=== PATIENT | male | born 1965 | race Hispanic/Latino ===

== ENCOUNTER 2016-10-16 17:41 | Emergency (ER) | payer MEDICARE ==
[2016-10-16 17:41] VITALS: BMI 25.8
[2016-10-16 17:49] VITALS: BP 135/81; RESP 20; TEMP 97.7; O2SAT 98
--- NOTE | 2016-10-16 17:55 | ED PDOC ---
Lower Extremity Pain/Injury Time Seen by Provider: 10/16/16 17:54 Chief Complaint (Nursing): Lower Extremity Problem/Injury Chief Complaint (Provider): leg pain History Per: Patient Additional Complaint(s): 50-year-old male with history of diabetes presents to emergency Department with pain to both feet for several weeks. He denies trauma or injury. Patient has been noncompliant with oral diabetes medications for the past 6 months. He was taking metformin but state it was causing too much stomach upset so he stopped taking the medication. Patient currently doesn't have a primary doctor and he is currently living in motels and he is "in between homes." Past Medical History Reviewed: Historical Data, Nursing Documentation, Vital Signs Vital Signs: Last Vital Signs Temp 97.7 F 10/16/16 17:48 Pulse 105 H 10/16/16 17:48 Resp 20 10/16/16 17:48 BP 135/81 10/16/16 17:48 Pulse Ox 98 10/16/16 17:48 - Medical History PMH: Depression, Diabetes, Schizophrenia - Surgical History Surgical History: No Surg Hx - Family History Family History: States: No Known Family Hx - Living Arrangements Living Arrangements: Other (living in motel currently, "in between homes") - Social History Current smoker - smoking cessation education provided: Yes Alcohol: None Drugs: Denies - Home Medications Home Medications: Ambulatory Orders Medication Instructions Recorded PARoxetine [Paxil] 30 mg PO DAILY 06/15/12 risperiDONE [RisperDAL Tab] 3 mg PO DAILY 06/15/12 - Allergies Allergies/Adverse Reactions: Allergies Allergy/AdvReac Type Severity Reaction Status Date / Time Penicillins Allergy RASH Verified 10/16/16 17:48 Wells Criteria for PE - Wells Criteria for Pulmonary Embolism Clinical Signs and Symptoms of DVT: No P.E is #1 Diagnosis, or Equally Likely: No Heart Rate >100: No Immobilization at least 3 days;Surgery previous 4 weeks: No Previous, objectively diagnosed PE or DVT: No Hemoptysis: No Malignancy w/treatment within 6 months, or palliative: No Total Score: 0 Review of Systems ROS Statement: Except As Marked, All Systems Reviewed And Found Negative Constitutional: Negative for: Fever Respiratory: Negative for: Shortness of Breath Musculoskeletal: Positive for: Foot Pain (bilateral) Physical Exam - Reviewed Nursing Documentation Reviewed: Yes Vital Signs Reviewed: Yes - Physical Exam Appears: Positive for: Well (appears unkempt), Non-toxic Skin: Negative for: Rash Cardiovascular/Chest: Positive for: Regular Rate, Rhythm Respiratory: Positive for: Normal Breath Sounds Extremity: Positive for: Other (Erythematous discoloration noted to plantar aspect of bilateral feet at base of toes, no acute infection noted, no active drainage, over grown toenails noted on both feet with debris under nails) Neurologic/Psych: Positive for: Alert, Oriented - Laboratory Results Result Diagrams: 10/16/16 19:05 10/16/16 19:05 - ECG O2 Sat by Pulse Oximetry: 98 Pulse Ox Interpretation: Normal Medical Decision Making Medical Decision Makin50 year old diabetic with foot pain Plan: Fingerstick CBC CMP Fingerstick 239 CMP glucose is 215 Patient seen by podiatry resident, no acute intervention indicated. Patient was referred to family practice clinic in podiatry clinic for follow-up. He was offered prescription for metformin for diabetes but he refused stating this medication causes GI side effects. He was advised to follow up as soon as possible clinic for further evaluation. Disposition - Clinical Impression Clinical Impression: Diabetes mellitus, Foot pain - Patient ED Disposition Is Patient to be Admitted: No Counseled Patient/Family Regarding: Studies Performed, Diagnosis, Need For Followup - Disposition Referrals: Podiatry Clinic [Outside] [facility] [Outside] Disposition: Routine/Home Disposition Time: 19:53 Condition: STABLE Additional Instructions: Follow-up with clinic as soon as possible. Instructions: Foot Sprain (ED), Diabetes Mellitus Type 2 in Adults (ED) Results - Lab Results Lab Results: 10/16/16 19:05 WBC 10.6 RBC 4.94 Hgb 14.5 Hct 43.8 MCV 88.7 MCH 29.4 MCHC 33.2 RDW 13.7 Plt Count 209 MPV 8.0 Neut % (Auto) 67.4 Lymph % (Auto) 22.9 Orange % (Auto) 7.2 Eos % (Auto) 1.3 Baso % (Auto) 1.2 Neut # 7.1 H Lymph # 2.4 Orange # 0.8 Eos # 0.1 Baso # 0.1 Sodium 140 Potassium 3.6 Chloride 102 Carbon Dioxide 25 Anion Gap 16 BUN 16 Creatinine 0.4 L Est GFR ( Amer) > 60 Est GFR (Non-Af Amer) > 60 Random Glucose 215 H Calcium 9.2 Total Bilirubin 0.7 AST 26 ALT 26 Alkaline Phosphatase 94 Total Protein 6.9 Albumin 4.0 Globulin 3.0 Albumin/Globulin Ratio 1.3
[2016-10-16 19:17] LABS: BASO # 0.1 K/uL (0.0-0.2); BASO % 1.2 % (0.0-2.0); EOS # 0.1 K/uL (0.0-0.7); EOS % 1.3 % (0.0-4.0); HEMATOCRIT 43.8 % (35.0-51.0); LYMPH # 2.4 K/uL (1.0-4.3); LYMPH % 22.9 % (20.0-40.0); MEAN CELL VOLUME 88.7 fl (80.0-94.0); MEAN CORPUSCULAR HEMOGLOBIN 29.4 pg (27.0-31.0); MEAN CORPUSCULAR HGB CONC 33.2 g/dL (33.0-37.0); MONO # 0.8 K/uL (0.0-0.8); MONO % 7.2 % (0.0-10.0); NEUT # 7.1 K/uL (1.8-7.0); NEUT % 67.4 % (50.0-75.0); NRBC % 0.1 % (0.0-0.0); RED CELL DISTRIBUTION WIDTH 13.7 % (11.5-14.5); WHITE BLOOD COUNT 10.6 K/uL (4.8-10.8)
--- NOTE | 2016-10-16 19:18 | CP.PCM.CON ---
History of Present Illness - History of Present Illness History of Present Illness: 50 year old male with PMHx of DM presents to the ED for complaint of pain in his feet. He states that the pain started 48 hours ago on the bottom of his feet. He admits to more pain when he is weight bearing. He denies any trauma to his feet. Patient states that he is "inbetween homes" and does not have a linoleum floor installer. He denies any n/v/f/c/sob/cp. Past Patient History - Infectious Disease Hx of Infectious Diseases: None - Tetanus Immunizations Tetanus Immunization: Unknown - Past Social History Alcohol: None Drugs: Denies - CARDIAC Hx Cardia Arrhythmia: No Hx Congestive Heart Failure: No Hx Hypercholesterolemia: No Hx Hypertension: No Hx Mitral Valve Prolapse: No Hx Pacemaker: No Hx Peripheral Edema: No - PULMONARY Hx Asthma: No Hx Bronchitis: No Hx Chronic Obstructive Pulmonary Disease (COPD): No Hx Emphysema: No Hx Pneumonia: No Hx Sleep Apnea: No - NEUROLOGICAL Hx Alzheimer's Disease: No Hx Dementia: No Hx Migraine: No Hx Parkinson's Disease: No Hx Seizures: No Hx Transient Ischemic Attacks (TIA): No - HEENT Hx HEENT Problems: No Hx Blind: No Hx Cataracts: No Hx Deafness: No Hx Difficulty Chewing: No Hx Epistaxis: No Hx Glaucoma: No Hx Macular Degeneration: No - RENAL Hx Chronic Kidney Disease: No Hx Kidney Stones: No - ENDOCRINE/METABOLIC Hx Hyperthyroidism: No Hx Hypothyroidism: No - HEMATOLOGICAL/ONCOLOGICAL Hx Anemia: No Hx Human Immunodeficiency Virus (HIV): No Hx Sickle Cell Disease: No - INTEGUMENTARY Hx Dermatological Problems: No Hx Basil Cell: No Hx Eczema: No Hx Melanoma: No Hx Psoriasis: No Hx Squamous Cell: No - MUSCULOSKELETAL/RHEUMATOLOGICAL Hx Arthritis: No Hx Fractures: No Hx Osteoporosis: No - GASTROINTESTINAL Hx Crohn's Disease: No Hx Diverticulitis: No Hx Gall Bladder Disease: No Hx Pancreatitis: No - GENITOURINARY/GYNECOLOGICAL Hx Sexually Transmitted Disorders: No - PSYCHIATRIC Hx Depression: Yes Hx Schizophrenia: Yes - SURGICAL HISTORY Hx Appendectomy: No Hx Cholecystectomy: No Hx Coronary Stent: No - ANESTHESIA Hx Anesthesia: No Meds Allergies/Adverse Reactions: Allergies Allergy/AdvReac Type Severity Reaction Status Date / Time Penicillins Allergy RASH Verified 10/16/16 17:48 Physical Exam - Constitutional Appears: Well, Non-toxic, No Acute Distress - Extremities Exam Additional comments: Vasc: DP and PT pulses palpable b/l. CFT < 3 seconds to all digits b/l. Skin temperature warm to cool from proximal to distal b/l. Neuro: Gross sensation intact b/l. Ortho: Pain on palpation to plantar aspect of forefoot. Derm: Erythematous areas noted to the plantar aspect of digits 1-5,bases of digits, lateral aspect of 5th metatarsal shaft and heels b/l. No drainage noted. No acute signs of infection noted. Nails 1-5 b/l are discolored, thickened, and elongated. Webspace are intact, with debris noted to skin. - Neurological Exam Neurological exam: Alert, Oriented x3 - Psychiatric Exam Psychiatric exam: Normal Affect, Normal Mood Results - Vital Signs Recent Vital Signs: Last Vital Signs Temp 97.7 F 10/16/16 17:48 Pulse 105 H 10/16/16 17:48 Resp 20 10/16/16 17:48 BP 135/81 10/16/16 17:48 Pulse Ox 98 10/16/16 19:02 - Labs Result Diagrams: 10/16/16 19:05 10/16/16 19:05 Assessment & Plan - Assessment and Plan (Free Text) Assessment: 50 year old male with foot pain due to wet footgear Plan: Patient examined and evaluated Chart, labs, vitals reviewed Discussed in detail with attending, Dr. Castellon Patient instructed to wear dry foot gear Patient to keep his legs elevated prn Patient to follow up in Podiatry clinic next week
[2016-10-16 19:24] LABS: ALB/GLOB RATIO 1.3 (1.0-2.1); ALKALINE PHOSPHATASE 94 U/L (38-126); ALT/SGPT 26 U/L (21-72); AST/SGOT 26 U/L (17-59); BILIRUBIN,TOTAL 0.7 mg/dl (0.2-1.3); BLOOD UREA NITROGEN 16 mg/dl (9-20); CALCIUM 9.2 mg/dL (8.4-10.2); CARBON DIOXIDE 25 mmol/L (22-30); CHLORIDE 102 mmol/L (98-107); GFR AFRICAN-AMERICAN > 60; GLUCOSE,RANDOM 215 mg/dL (75-110); POTASSIUM 3.6 MMOL/L (3.6-5.0); SODIUM 140 mmol/l (132-148); TOTAL PROTEIN 6.9 G/DL (6.3-8.2)
[2016-10-16 20:07] VITALS: PULSE 89
== END 2016-10-16 20:06 | disposition home or self-care (01) ==
LOC: H.ER 17:41
DX: M79.673 Pain in unspecified foot (principal); E11.9 Type 2 diabetes mellitus without complications; F20.9 Schizophrenia, unspecified